=== PATIENT | male | born 1975 | race Caucasian/White ===

== ENCOUNTER 2022-04-07 13:10 | Emergency (ER) | payer OTHER, SELFPAY ==
[2022-04-07 13:20] VITALS: BP 110/68; PULSE 85; RESP 22; TEMP 36; O2SAT 98
--- NOTE | 2022-04-07 13:45 | DI.US_ITS ---
Exam(s) US LOWER EXTREMITY VENOUS LT EXAM: US LOWER EXTREMITY VENOUS LT CLINICAL HISTORY: pain/swelling TECHNIQUE: Grayscale, color, and doppler imaging of the deep venous system of the left lower extremi ty was performed. COMPARISON: No exams were available for comparison FINDINGS: There is no evidence of intraluminal thrombus and there is normal compression and augmentation demons trated within the common femoral vein, femoral vein, and popliteal vein. In the ipsilateral calf the interrogated veins also exhibit normal compression/ augmentation properti es. The ipsilateral saphenofemoral junction is patent. Incidentally noted is a 3.3 x 3.1 x 1.2 cm lymph node in the left groin, probably reactive, given the history here. IMPRESSION: 1. No evidence of DVT in the left lower extremity. Enlarged left groin lymph node. DATA REPOSITORY:
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
[2022-04-07 14:50] VITALS: BP 121/65; PULSE 78; RESP 18; TEMP 36.6; O2SAT 98
[2022-04-07] MEDS: Cephalexin 500 MG CAP PO (16:42)
== END 2022-04-07 16:48 | disposition home or self-care (01) ==
PROVIDERS: Emergency Provider Physician Assistant
DX: L03.116 Cellulitis of left lower limb (principal); R22.42 Localized swelling, mass and lump, left lower limb
CPT/HCPCS: 80053; 99284; 85025; 85610; 85730; 93971

== ENCOUNTER 2022-04-24 07:52 | Emergency (ER) | payer OTHER, SELFPAY ==
[2022-04-24 07:58] VITALS: BP 137/72; PULSE 66; RESP 16; TEMP 37.1; O2SAT 97
--- NOTE | 2022-04-24 08:00 | DI.US_ITS ---
Exam(s) US LOWER EXTREMITY VENOUS LT EXAM: US LOWER EXTREMITY VENOUS LT CLINICAL HISTORY: leg pain, calf TECHNIQUE: Left lower extremity venous ultrasound performed using grayscale, color-flow, and spectra l Doppler analysis. COMPARISON: US US LOWER EXTREMITY VENOUS LT from 04/07/2022 FINDINGS: The left common femoral, femoral and popliteal veins demonstrate normal compressibility, augmentation , and color Doppler. The posterior tibial veins are patent. The saphenofemoral junction is unremarka ble. There is no evidence of a Latif cyst. The soft tissues are unremarkable. IMPRESSION: 1. No DVT. 2. Results of this exam have been verbally communicated with provider. DATA REPOSITORY:
--- NOTE | 2022-04-24 09:00 | DI.US_ITS ---
Exam(s) US SOFT TISSUE EXTREMITY EXAM: US SOFT TISSUE EXTREMITY CLINICAL HISTORY: left lateral calf pain, tenderness,. TECHNIQUE: Ultrasound was performed using standard protocol. COMPARISON: No exams were available for comparison FINDINGS: Sonographic assessment utilizing grayscale and color Doppler imaging was performed and targeted to th e area of clinical concern. Sonographic evaluation of the lateral left leg was performed from the knee to the ankle. No soft tis rufina mass or focal fluid collection is seen. No edema is seen in the soft tissues. IMPRESSION: 1. Unremarkable soft tissue ultrasound of the left lateral leg. No evidence sonographically of an ab scess or edema. 2. Results of this exam have been verbally communicated with provider. DATA REPOSITORY:
[2022-04-24 10:31] LABS: Abs Immature Grans 0.01 10^3/uL (0.0-0.06); Absolute Basophil Count 0.05 10^3/uL (0.0-0.2); Absolute Eosinophil Count 0.16 10^3/uL (0.0-0.7); Absolute Monocyte Count 0.48 10^3/uL (0.1-0.8); Absolute Neutrophil Count 2.73 10^3/uL (1.2-6.7); Eosinophils % 3.2; HCT 38.5 % (40.0-50.0); HGB 12.6 g/dL (13.5-17.5); Immature Grans % 0.2; Lymphocytes % 30.4; MCH 29.2 pg (27.0-33.0); MCHC 32.7 % (32.0-36.0); MCV 89 fL (80-95); MPV 9.1 fL (8.0-11.0); Monocytes % 9.7; Neutrophils % 55.5; Platelet Count 272 10^3/uL (130-400); RBC 4.32 10^6/uL (4.36-5.78); RDW 12.7 % (11.8-14.1); RDW-SD 41.7 fL; WBC 4.93 10^3/uL (4.4-10.8)
[2022-04-24 10:45] LABS: ALT 23 U/L (16-63); AST 23 U/L (15-37); Albumin 4.1 g/dL (3.4-5.0); Alkaline Phosphatase 56 U/L (46-116); Anion Gap 7.2 mmol/L (3-11); BUN 16 mg/dL (7-18); Bilirubin, Total 0.8 mg/dL (0.2-1.0); C-Reactive Protein 0.34 mg/dL (0.0-0.3); CO2 28.8 mmol/L (21.0-32.0); CREATININE 0.9 mg/dL (0.70-1.30); Calcium 9.5 mg/dL (8.5-10.1); Chloride 103 mmol/L (98-107); Creatine Kinase 315 U/L (39-308); Glucose 116 mg/dL (74-106); Potassium 4.5 mmol/L (3.5-5.1); Sodium 139 mmol/L (136-145); Total Protein 7.6 g/dL (6.4-8.2)
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
[2022-04-24 11:00] VITALS: BP 137/72; PULSE 66; RESP 16; TEMP 37.1; O2SAT 97
== END 2022-04-24 11:04 | disposition home or self-care (01) ==
PROVIDERS: Emergency Provider Physician Assistant
DX: M79.605 Pain in left leg (principal)
CPT/HCPCS: 36415; 76881; 80053; 82550; 99284; 85025; 86140; 93971; 99282